=== PATIENT | female | born 1985 | race African-American/Black ===

== ENCOUNTER 2017-10-13 23:34 | Emergency (ER) | payer OTHER ==
[2017-10-13 23:50] VITALS: BP 116/90; PULSE 88; TEMP 98.5; BMI 31.6
[2017-10-14] MEDS ORDERED: KETOROLAC TROMETHAMINE 30 MG/1 ML VIAL IVPUSH ONE (01:13)
[2017-10-14] MEDS ORDERED: SODIUM CHLORIDE 1,000 ML IV STA (01:13)
[2017-10-14] MEDS ORDERED: ALBUTEROL SO4 0.083% IH SOL 2.5 MG/3 ML VIAL.NEB. NEB ONE ×2 (01:13→01:29)
[2017-10-14] MEDS ORDERED: KETOROLAC TROMETHAMINE 30 MG/1 ML VIAL ONE (01:29)
[2017-10-14 01:47] LABS: BASO % 0.8 % (0-2.0); EOS % 3.5 % (0-4.5); HEMATOCRIT 36.3 % (32.4-45.2); HEMOGLOBIN 11.7 GM/dL (10.7-15.3); LYMPH % 50.2 % (8-40); MCHC 32.3 g/dl (32.0-36.0); MEAN CELL VOLUME 83.7 fl (80-96); MEAN PLT VOLUME 7.6 fl (7.5-11.1); MONO % 17.4 % (3.8-10.2); NEUT % 28.1 % (42.8-82.8); PLATELET COUNT 293 K/MM3 (134-434); RBC 4.33 M/mm3 (3.60-5.2); WHITE BLOOD COUNT 2.9 K/mm3 (4.0-10.0)
[2017-10-14 01:50] LABS: URINE APPEARANCE CLEAR; URINE BILIRUBIN NEGATIVE (NEGATIVE); URINE BLOOD 1+ (NEGATIVE); URINE COLOR STRAW; URINE GLUCOSE (UA) NEGATIVE (NEGATIVE); URINE KETONE NEGATIVE (NEGATIVE); URINE LEUK ESTERASE NEGATIVE (NEGATIVE); URINE NITRITE NEGATIVE (NEGATIVE); URINE PROTEIN NEGATIVE (NEGATIVE)
[2017-10-14 01:53] LABS: HCG,QUALITATIVE URINE NEGATIVE
[2017-10-14 01:54] LABS: EPI CELLS RARE /HPF (FEW)
[2017-10-14 02:22] LABS: ALBUMIN 3.3 g/dl (3.4-5.0); ALK PHOS 59 U/L (45-117); ANION GAP 8 (8-16); BILIRUBIN,TOTAL 0.2 mg/dL (0.2-1.0); BLOOD UREA NITROGEN 7 mg/dL (7-18); CALCIUM 8.6 mg/dL (8.5-10.1); CHLORIDE 104 mmol/L (98-107); CO2 27 mmol/L (21-32); CREATININE 0.8 mg/dL (0.55-1.02); GLUCOSE,RANDOM 92 mg/dL (74-106); LIPASE 125 U/L (73-393); POTASSIUM 4.1 mmol/L (3.5-5.1); SGOT/AST 18 U/L (15-37); SGPT/ALT 23 U/L (12-78); SODIUM 139 mmol/L (136-145); TOT PROT 7.7 g/dl (6.4-8.2)
--- NOTE | 2017-10-14 02:34 | PDOC ---
History of Present Illness <Rommel London - Last Filed: 10/14/17 02:42> - General History Source: Patient Exam Limitations: No Limitations - History of Present Illness Initial Comments: 10/14/17 02:36 The patient is a 31 year old female, with a significant past medical history of seasonal asthma, who presents to the emergency department with, approx. 2 days of fever, dry cough, epigastric abdominal pain, lightheadedness and nausea without vomiting. The patient reports the epigastric abdominal pain is intermittent and last for a few minutes before going away on its own. The patient also reports one episode of diarrhea (non bloody non bilious) and decreased appetite with her last meal being chicken noodle soup prior to arrival. The patient reports her coworker recently came to work with the flu this past week. The patient reports taking Theraflu with minor relief. She denies recent, chills, or headache. She denies recent, vomit, or constipation. She denies recent dysuria, frequency, urgency or hematuria. She denies recent chest pain or shortness of breath. Allergies: Penicillins Past surgical history: Reports having ovarian cyst removed. Social history: Nonsmoker. Denies EtOH use and recreational drug use. Primary Care Physician: Dr Collin Lemus <Cooper Connor - Last Filed: 10/14/17 02:46> - General Chief Complaint: Pain, Acute Stated Complaint: COLD SYMPTOMS Time Seen by Provider: 10/14/17 00:59 Past History - Past Medical History COPD: No - Suicide/Smoking/Psychosocial Hx Smoking History: Never smoked Have you smoked in the past 12 months: No Information on smoking cessation initiated: No Hx Alcohol Use: No Drug/Substance Use Hx: No <Rommel London - Last Filed: 10/14/17 02:42> <Cooper Connor - Last Filed: 10/14/17 02:46> - Past Medical History Allergies/Adverse Reactions: Allergies Allergy/AdvReac Type Severity Reaction Status Date / Time Penicillins Allergy Verified 10/13/17 23:49 Home Medications: Ambulatory Orders Albuterol Sulfate Inhaler - [Ventolin HFA Inhaler -] 1 - 2 inh PO Q4H PRN #1 inhaler 10/14/17 Famotidine [Pepcid] 20 mg PO BID PRN #10 tablet 10/14/17 Ibuprofen 600 mg PO Q6H PRN #20 tablet 10/14/17 Mag Hydrox/Al Hydrox/Simeth [Mylanta Suspension -] 30 ml PO Q6H PRN #1 bottle Ondansetron HCl [Zofran] 4 mg PO Q8H PRN #12 tablet 10/14/17 Review of Systems - Review of Systems Comments:: 10/14/17 02:36 GENERAL/CONSTITUTIONAL: +Fever. No chills. No weakness. HEAD, EYES, EARS, NOSE AND THROAT: No change in vision. No ear pain or discharge. No sore throat. CARDIOVASCULAR: No chest pain or shortness of breath. RESPIRATORY: +Dry cough. No wheezing, or hemoptysis. GASTROINTESTINAL: +Epigastric abdominal pain. +Nausea. +Diarrhea. No vomiting or constipation. GENITOURINARY: No dysuria, frequency, or change in urination. MUSCULOSKELETAL: No joint or muscle swelling or pain. No neck or back pain. SKIN: No rash NEUROLOGIC: +Lightheadedness. No headache, vertigo, loss of consciousness, or change in strength/sensation. ENDOCRINE: No increased thirst. No abnormal weight change. HEMATOLOGIC/LYMPHATIC: No anemia, easy bleeding, or history of blood clots. ALLERGIC/IMMUNOLOGIC: No hives or skin allergy. <Cooper Connor - Last Filed: 10/14/17 02:46> *Physical Exam - Vital Signs Last Vital Signs Temp Pulse Resp BP Pulse Ox 98.5 F 88 20 116/90 99 10/13/17 23:49 10/13/17 23:49 10/13/17 23:49 10/13/17 23:49 10/13/17 23:49 <Rommel London - Last Filed: 10/14/17 02:42> - Vital Signs Last Vital Signs Temp Pulse Resp BP Pulse Ox 98.5 F 88 20 116/90 99 10/13/17 23:49 10/13/17 23:49 10/13/17 23:49 10/13/17 23:49 10/13/17 23:49 - Physical Exam Comments: 10/14/17 02:36 GENERAL: Awake, alert, and fully oriented, in no acute distress HEAD: No signs of trauma EYES: PERRLA, EOMI, sclera anicteric, conjunctiva clear ENT: Auricles normal inspection, hearing grossly normal, nares patent, oropharynx clear without exudates. Moist mucosa NECK: Normal ROM, supple, no lymphadenopathy, JVD, or masses LUNGS: Breath sounds equal, clear to auscultation bilaterally. No wheezes, and no crackles HEART: Regular rate and rhythm, normal S1 and S2, no murmurs, rubs or gallops ABDOMEN: +Tender to epigastric region. Negative murphys sign. Soft, normoactive bowel sounds. No guarding, no rebound. No masses EXTREMITIES: Normal range of motion, no edema. No clubbing or cyanosis. No cords, erythema, or tenderness NEUROLOGICAL: Cranial nerves II through XII grossly intact. Normal speech, normal gait SKIN: Warm, Dry, normal turgor, no rashes or lesions noted. <Cooper Connor - Last Filed: 10/14/17 02:46> ED Treatment Course - LABORATORY CBC & Chemistry Diagram: 10/14/17 01:36 10/14/17 01:36 - ADDITIONAL ORDERS Additional order review: Laboratory Results 10/14/17 10/14/17 01:36 01:36 Sodium 139 Potassium 4.1 Chloride 104 Carbon Dioxide 27 Anion Gap 8 BUN 7 Creatinine 0.8 Creat Clearance w eGFR > 60 Random Glucose 92 Calcium 8.6 Total Bilirubin 0.2 AST 18 ALT 23 Alkaline Phosphatase 59 Total Protein 7.7 Albumin 3.3 L Lipase 125 Urine Color Straw Urine Appearance Clear Urine pH 6.0 Ur Specific [place] 1.004 Urine Protein Negative Urine Glucose (UA) Negative Urine Ketones Negative Urine Blood 1+ H Urine Nitrite Negative Urine Bilirubin Negative Urine Urobilinogen 2.0 H Ur Leukocyte Esterase Negative Urine WBC (Auto) 1 Urine RBC (Auto) <1 Ur Epithelial Cells Rare Urine HCG, Qual Negative 10/14/17 01:36 Influenza Types A,B Antigen (PRINCESS) - Final Nasopharyngeal Swab - Final 10/14/17 01:36 RBC 4.33 MCV 83.7 MCHC 32.3 RDW 17.0 H MPV 7.6 Neutrophils % 28.1 L Lymphocytes % 50.2 H Monocytes % 17.4 H Eosinophils % 3.5 Basophils % 0.8 - Medications Given in the ED: ED Medications Discontinued Medications Generic Name Dose Route Start Last Admin Trade Name Freq PRN Reason Stop Dose Admin Albuterol Sulfate 1 amp 10/14/17 01:13 10/14/17 01:44 Ventolin 0.083% Nebulizer Soln - NEB 10/14/17 01:14 1 amp ONCE ONE Administration Sodium Chloride 1,000 mls @ 1,000 mls/hr 10/14/17 01:13 10/14/17 01:43 Normal Saline - IV 10/14/17 02:12 1,000 mls/hr ASDIR STA Administration Ketorolac Tromethamine 30 mg 10/14/17 01:13 10/14/17 01:43 Toradol Injection - IVPUSH 10/14/17 01:14 30 mg ONCE ONE Administration <Rommel London - Last Filed: 10/14/17 02:42> - LABORATORY CBC & Chemistry Diagram: 10/14/17 01:36 10/14/17 01:36 - ADDITIONAL ORDERS Additional order review: Laboratory Results 10/14/17 10/14/17 01:36 01:36 Sodium 139 Potassium 4.1 Chloride 104 Carbon Dioxide 27 Anion Gap 8 BUN 7 Creatinine 0.8 Creat Clearance w eGFR > 60 Random Glucose 92 Calcium 8.6 Total Bilirubin 0.2 AST 18 ALT 23 Alkaline Phosphatase 59 Total Protein 7.7 Albumin 3.3 L Lipase 125 Urine Color Straw Urine Appearance Clear Urine pH 6.0 Ur Specific [place] 1.004 Urine Protein Negative Urine Glucose (UA) Negative Urine Ketones Negative Urine Blood 1+ H Urine Nitrite Negative Urine Bilirubin Negative Urine Urobilinogen 2.0 H Ur Leukocyte Esterase Negative Urine WBC (Auto) 1 Urine RBC (Auto) <1 Ur Epithelial Cells Rare Urine HCG, Qual Negative 10/14/17 01:36 Influenza Types A,B Antigen (PRINCESS) - Final Nasopharyngeal Swab - Final 10/14/17 01:36 RBC 4.33 MCV 83.7 MCHC 32.3 RDW 17.0 H MPV 7.6 Neutrophils % 28.1 L Lymphocytes % 50.2 H Monocytes % 17.4 H Eosinophils % 3.5 Basophils % 0.8 - Medications Given in the ED: ED Medications Discontinued Medications Generic Name Dose Route Start Last Admin Trade Name Freq PRN Reason Stop Dose Admin Albuterol Sulfate 1 amp 10/14/17 01:13 10/14/17 01:44 Ventolin 0.083% Nebulizer Soln - NEB 10/14/17 01:14 1 amp ONCE ONE Administration Sodium Chloride 1,000 mls @ 1,000 mls/hr 10/14/17 01:13 10/14/17 01:43 Normal Saline - IV 10/14/17 02:12 1,000 mls/hr ASDIR STA Administration Ketorolac Tromethamine 30 mg 10/14/17 01:13 10/14/17 01:43 Toradol Injection - IVPUSH 10/14/17 01:14 30 mg ONCE ONE Administration <Cooper Connor - Last Filed: 10/14/17 02:46> Medical Decision Making - Medical Decision Making 10/14/17 02:42 A portion of this note was documented by scribe services under my direction. I have reviewed the details of the note, within reason, and agree with the documentation with the following case summary and management plan written by me. Patient treated in the ED. Nursing notes are reviewed and incorporated into the medical decision-making. Vital signs reviewed. Peripheral IV access obtained by the nurse, laboratory studies are drawn and sent, reviewed and interpreted by myself. Vital Signs Temp Pulse Resp BP Pulse Ox 98.5 F 88 20 116/90 99 10/13/17 23:49 10/13/17 23:49 10/13/17 23:49 10/13/17 23:49 10/13/17 23:49 31-year-old female with history of seasonal asthma presents with 2 days of dry cough, abdominal discomfort, nausea, loose stools. States that she's been having difficulty tolerate by mouth. Had positive sick contact. The blood work demonstrates a low white blood cell count and triple count. The patient reports that she has a known history of this and this is nothing new. The rest of blood work done shows no acute findings. After giving albuterol, Toradol and IV fluids, the patient reports significant relief of symptoms. She states she'll to go home. I suspect this is likely viral syndrome. We'll give referral to our doctors here at [facility]. I discussed the physical exam findings, ancillary test results and final diagnoses with the patient. I answered all of the patient's questions. The patient was satisfied with the care received and felt comfortable with the discharge plan and treatment plan. The patient will call their primary care physician within 24 hours to arrange follow-up and will return to the Emergency Department with any new, persistant or worsening symptoms. <Rommel London - Last Filed: 10/14/17 02:42> *DC/Admit/Observation/Transfer - Discharge Dispostion Admit: No <Rommel London - Last Filed: 10/14/17 02:42> - Attestations Scribe Attestion: 10/14/17 02:36 Documentation prepared by Cooper Connor, acting as medical record technician for Rommel London MD. <Cooper Connor - Last Filed: 10/14/17 02:46> Diagnosis at time of Disposition: Gastroenteritis - Discharge Dispostion Disposition: HOME - Prescriptions Prescriptions: Albuterol Sulfate Inhaler - [Ventolin HFA Inhaler -] 1 - 2 inh PO Q4H PRN #1 inhaler PRN Reason: Wheezing Famotidine [Pepcid] 20 mg PO BID PRN #10 tablet PRN Reason: Abdominal Pain Ibuprofen 600 mg PO Q6H PRN #20 tablet PRN Reason: Pain/Fever Mag Hydrox/Al Hydrox/Simeth [Mylanta Suspension -] 30 ml PO Q6H PRN #1 bottle PRN Reason: Abdominal Pain Ondansetron HCl [Zofran] 4 mg PO Q8H PRN #12 tablet PRN Reason: Nausea - Referrals Referrals: Brodie Busby MD [Staff Physician] - - Patient Instructions Printed Discharge Instructions: DI for Viral Gastroenteritis -- Adult, DI for Viral Syndrome Additional Instructions: Please drink plenty of fluids and rest. It may take several days before your symptoms improve. Please take the medications as prescribed. Follow up with a doctor. - Post Discharge Activity Forms/Work/School Notes: Back to Work
== END 2017-10-14 03:10 | disposition home or self-care (01) ==
LOC: JER 23:34
PROC: 3E0333Z Introduction of Anti-inflammatory into Peripheral Vein, Percutaneous Approach (ICD-10-PCS; principal; 2017-10-13)
PROC: 3E0F7GC Introduction of Other Therapeutic Substance into Respiratory Tract, Via Natural or Artificial Opening (ICD-10-PCS; 2017-10-13)
DX: K52.9 Noninfective gastroenteritis and colitis, unspecified (principal)
CPT/HCPCS: 36415; 80053; 81003; 81015; 83690; 84703; 85025; 87804; 99282-25

== ENCOUNTER 2018-01-23 17:30 | Emergency (ER) | payer OTHER ==
--- NOTE | 2018-01-23 17:33 | PDOC ---
Rapid Medical Evaluation Time Seen by Provider: 01/23/18 17:31 Medical Evaluation: Allergies Allergy/AdvReac Type Severity Reaction Status Date / Time Penicillins Allergy Verified 01/23/18 17:31 01/23/18 17:31 I have performed a brief in-person evaluation of this patient. The patient presents with a chief complaint of: sharp lower abdominal pain- 9wks Pertinent physical exam findings: deferred I have ordered the following: urine, labs, tylenol The patient will proceed to the ED for further evaluation. Discharge Disposition - Diagnosis Abdominal pain affecting - Referrals - Patient Instructions - Post Discharge Activity
[2018-01-23 17:35] VITALS: BP 127/68; PULSE 97; TEMP 98.3; BMI 30.9
[2018-01-23 17:59] LABS: BASO % 0.4 % (0-2.0); EOS % 1.6 % (0-4.5); HEMATOCRIT 32.5 % (32.4-45.2); HEMOGLOBIN 10.8 GM/dL (10.7-15.3); LYMPH % 30.9 % (8-40); MCHC 33.3 g/dl (32.0-36.0); MEAN CELL VOLUME 84.2 fl (80-96); MEAN PLT VOLUME 7.4 fl (7.5-11.1); MONO % 7.2 % (3.8-10.2); NEUT % 59.9 % (42.8-82.8); PLATELET COUNT 365 K/MM3 (134-434); RBC 3.86 M/mm3 (3.60-5.2); WHITE BLOOD COUNT 7.6 K/mm3 (4.0-10.0)
--- NOTE | 2018-01-23 17:59 | PDOC ---
History of Present Illness - General Chief Complaint: Pain Stated Complaint: PAIN (9 WKS ) Time Seen by Provider: 01/23/18 17:31 - History of Present Illness Initial Comments: 01/23/18 17:57 32 [id number], LMP 11/23 at 9w3d confirmed by transvaginal U/S, h/o asthma, who p/ w abdominal pain and dsyuria. Reports suprpapubic pain/pressure ( worse with sitting position) and dysuria x 3 days. No asx. complaints. No OTC symptom management. Denies F/C, N/V, cough, CP, SOB, abdominal pain, flank pain, foul smelling urine , diarrhea, constipation, postprandial pain, BPR, urinary frequency, vaginal burning/discharge/itching/bleeding, hematuria, weakness, lightheadedness, sensory changes PMHx: L Ovarian Cystectomy (07/22/2015). F/w red cap Dr. Morales. Allergies: Allergic to Penicillin ROS: As noted above SHx: denies tobacco, Etoh, IVDA Past History - Past Medical History Allergies/Adverse Reactions: Allergies Allergy/AdvReac Type Severity Reaction Status Date / Time Penicillins Allergy Verified 01/23/18 17:31 Home Medications: Ambulatory Orders Famotidine [Pepcid] 20 mg PO BID PRN #10 tablet 10/14/17 Mag Hydrox/Al Hydrox/Simeth [Mylanta Suspension -] 30 ml PO Q6H PRN #1 bottle Ondansetron HCl [Zofran] 4 mg PO Q8H PRN #12 tablet 10/14/17 RX: Albuterol Sulfate Inhaler - [Ventolin HFA Inhaler -] 1 - 2 inh PO Q4H PRN # 1 inhaler 10/14/17 RX: Ibuprofen 600 mg PO Q6H PRN #20 tablet 10/14/17 CVA: No COPD: No - Surgical History Abdominal Surgery: Yes (lt ovary cyst) - Suicide/Smoking/Psychosocial Hx Smoking History: Never smoked Have you smoked in the past 12 months: No Information on smoking cessation initiated: No Hx Alcohol Use: No Drug/Substance Use Hx: No Substance Use Type: None Review of Systems - Review of Systems Comments:: 01/23/18 17:57 GENERAL/CONSTITUTIONAL: No fever or chills. No weakness. HEAD, EYES, EARS, NOSE AND THROAT: No change in vision. No ear pain or discharge. No sore throat. CARDIOVASCULAR: No chest pain or shortness of breath RESPIRATORY: No cough, wheezing, or hemoptysis. GASTROINTESTINAL: No nausea, vomiting, diarrhea or constipation. GENITOURINARY:+ dysuria. No frequency, or change in urination. MUSCULOSKELETAL: No joint or muscle swelling or pain. No neck or back pain. SKIN: No rash NEUROLOGIC: No headache, vertigo, loss of consciousness, or change in strength/ sensation. ENDOCRINE: No increased thirst. No abnormal weight change HEMATOLOGIC/LYMPHATIC: No anemia, easy bleeding, or history of blood clots. ALLERGIC/IMMUNOLOGIC: No hives or skin allergy. *Physical Exam - Vital Signs Last Vital Signs Temp Pulse Resp BP Pulse Ox 98.3 F 97 H 18 127/68 100 01/23/18 17:32 01/23/18 17:32 01/23/18 17:32 01/23/18 17:32 01/23/18 17:32 - Physical Exam Comments: 01/23/18 17:57 GENERAL: Awake, alert, and fully oriented, in no acute distress HEAD: No signs of trauma, normocephalic, atraumatic EYES: PERRLA, EOMI, sclera anicteric, conjunctiva clear ENT: Hearing grossly normal, nares patent, oropharynx clear without exudates. Moist mucosa NECK: Normal ROM, supple, no lymphadenopathy, JVD, or masses LUNGS: No distress, speaks full sentences, clear to auscultation bilaterally HEART: Regular rate and rhythm, normal S1 and S2, no murmurs, rubs or gallops, peripheral pulses normal and equal bilaterally. ABDOMEN: suprpapubic discomfort/ttp, normoactive bowel sounds. No guarding, no rebound. No masses EXTREMITIES : Normal inspection, Normal range of motion, no edema. No clubbing or cyanosis. SKIN: Warm, Dry, normal turgor, no rashes or lesions noted ED Treatment Course - LABORATORY CBC & Chemistry Diagram: 01/23/18 17:45 01/23/18 17:45 Medical Decision Making - Medical Decision Making 01/23/18 18:29 32 [id number], LMP 11/23 at 9w3d confirmed by transvaginal U/S, h/o asthma, who p/ w suprapubic abdominal pain and dsyuria x 3 days. No asx. complaints, VSS, A&Ox3 , suprpapubic ttp on PE. Sx.most likely 2/2 cystitis. Transabdominal to assess for viable IUP, vs. ectopic , placenta previa, MINOO, threatened . However, unlikely in absence of vaginal bleeding. No evidence or clinical s/s of pyelonephritis. ED Course: CBC, CMP, BHCG, UA, Urine Cx. 01/23/18 20:11 UA: Neg 01/23/18 20:33 CBC, CMP: Unremarkable BHC Transab U/S: FHR 173, Viable IUP 10w2d. 01/23/18 20:35 Pt. safe for d/c with return precautions. Advised to f/u with Maintenance Clerk. *DC/Admit/Observation/Transfer Diagnosis at time of Disposition: Abdominal pain affecting Qualifiers: Weeks of gestation: 10 weeks Qualified Code(s): Z3A.10 - 10 weeks gestation of - Discharge Dispostion Disposition: HOME Condition at time of disposition: Stable - Referrals - Patient Instructions Printed Discharge Instructions: DI for -- Discomforts and Remedies, DI for Abdominal Pain -- Early Additional Instructions: Please return to the emergency department with any new or worsening symptoms or concerns. Please follow up with your fiber optics engineer physician within 72 hours. - Post Discharge Activity - Attestations Physician Attestion: 01/23/18 17:58 I attest to the information provided in this note.
[2018-01-23 18:22] LABS: CHLORIDE 105 mmol/L (98-107); POTASSIUM 4.1 mmol/L (3.5-5.1); SODIUM 137 mmol/L (136-145)
[2018-01-23 18:55] LABS: ALBUMIN 3.2 g/dl (3.4-5.0); ALK PHOS 60 U/L (45-117); ANION GAP 9 (8-16); BILIRUBIN,TOTAL 0.4 mg/dL (0.2-1.0); BLOOD UREA NITROGEN 8 mg/dL (7-18); CALCIUM 8.8 mg/dL (8.5-10.1); CO2 23 mmol/L (21-32); CREATININE 0.6 mg/dL (0.55-1.02); GLUCOSE,RANDOM 98 mg/dL (74-106); SGOT/AST 12 U/L (15-37); SGPT/ALT 17 U/L (12-78); TOT PROT 7.3 g/dl (6.4-8.2)
[2018-01-23 19:12] LABS: URINE APPEARANCE CLEAR; URINE BILIRUBIN NEGATIVE (<2.0 mg/dL); URINE COLOR STRAW; URINE GLUCOSE (UA) NEGATIVE (NEGATIVE); URINE KETONE NEGATIVE (NEGATIVE); URINE LEUK ESTERASE NEGATIVE (NEGATIVE); URINE NITRITE NEGATIVE (NEGATIVE); URINE PROTEIN NEGATIVE (NEGATIVE); URINE UROBILINOGEN NEGATIVE mg/dL (0.2-1.0)
--- NOTE | 2018-01-23 19:46 | PDOC ---
Attending Attestation - HPI HPI: 01/23/18 20:11 The patient is a 32 year old female, , 9 wk 3 days, with past medical history of left ovarian cystectomy and asthma presents to the emergency department with a lower abdominal pain for the past 3 days. The patient reports a sharp shooting pain radiating from her lower abdomen to the pubix region when urinating. Denies taking any medication for the pain. Denies hematuria, frequency or urgency to urinate. Denies vaginal bleeding or discharge. Denies weakness, lightheadedness or loss of sensations. 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 No apparent distress. HEENT: Normocephalic, atraumatic. PERRL, EOM intact. CARDIOVASCULAR: Normal S1, S2. Regular rate and rhythm. PULMONARY: Clear to auscultation bilaterally. ABDOMEN: Shooting pain, no pelvic exam done. Soft, non-distended, non-tender. EXTREMITIES: Normal ROM in all four extremities. No gross deformities. SKIN: Warm, dry. No rash NEUROLOGICAL: No focal neurological deficits. <Dayna Nino - Last Filed: 01/23/18 20:11> - Resident Resident Name: Ari Aly - ED Attending Attestation I have performed the following: I have examined & evaluated the patient, The case was reviewed & discussed with the resident, I agree w/resident's findings & plan, Exceptions are as noted - HPI HPI: 01/23/18 19:44 32 YO FEMALE P/W SHOOTING PELVIC PAIN FOLLOWED BY WOMEN TO WOMEN - Physicial Exam PE: 01/23/18 19:46 WNWD 32 YO FEMALE WITH PELVIC CRAMPING,NO BLEEDING - Medical Decision Making 01/23/18 20:56 [id number] US sl iup ,good heart tones -f/u with you anna/corporate human resources manager <Luz Marina Alvarado - Last Filed: 01/23/18 20:56>
--- NOTE | 2018-01-23 20:55 | PDOC ---
*Physical Exam - Vital Signs Last Vital Signs Temp Pulse Resp BP Pulse Ox 98.3 F 97 H 18 127/68 100 01/23/18 17:32 01/23/18 17:32 01/23/18 17:32 01/23/18 17:32 01/23/18 17:32 ED Treatment Course - LABORATORY CBC & Chemistry Diagram: 01/23/18 17:45 01/23/18 17:45 - ADDITIONAL ORDERS Additional order review: Laboratory Results 01/23/18 01/23/18 01/23/18 18:45 17:45 17:45 Sodium 137 Potassium 4.1 Chloride 105 Carbon Dioxide 23 Anion Gap 9 BUN 8 Creatinine 0.6 Creat Clearance w eGFR > 60 Random Glucose 98 Calcium 8.8 Total Bilirubin 0.4 D AST 12 L ALT 17 Alkaline Phosphatase 60 Total Protein 7.3 Albumin 3.2 L Beta HCG, Quant 78056.0 Urine Color Straw Urine Appearance Clear Urine pH 6.0 Ur Specific [place] 1.004 Urine Protein Negative Urine Glucose (UA) Negative Urine Ketones Negative Urine Blood Negative Urine Nitrite Negative Urine Bilirubin Negative Urine Urobilinogen Negative Ur Leukocyte Esterase Negative Blood Type O POSITIVE Antibody Screen Negative 01/23/18 17:45 RBC 3.86 MCV 84.2 MCHC 33.3 RDW 16.0 H MPV 7.4 L Neutrophils % 59.9 D Lymphocytes % 30.9 D Monocytes % 7.2 Eosinophils % 1.6 Basophils % 0.4 - RADIOLOGY Radiology Studies Ordered: Category Date Time Status <14WKS US [US] Stat Ultrasound 01/23/18 19:18 Completed *DC/Admit/Observation/Transfer Diagnosis at time of Disposition: Abdominal pain affecting Qualifiers: Weeks of gestation: 10 weeks Qualified Code(s): Z3A.10 - 10 weeks gestation of - Discharge Dispostion Disposition: HOME Condition at time of disposition: Stable - Referrals - Patient Instructions Printed Discharge Instructions: DI for Abdominal Pain -- Early , DI for -- Discomforts and Remedies Additional Instructions: Please return to the emergency department with any new or worsening symptoms or concerns. Please follow up with your french instructor physician within 72 hours. - Post Discharge Activity
== END 2018-01-23 20:58 | disposition home or self-care (01) ==
LOC: JER 17:30
DX: O26.891 Other specified pregnancy related conditions, first trimester (principal); R10.2 Pelvic and perineal pain; Z3A.10 10 weeks gestation of pregnancy
CPT/HCPCS: 36415; 76801-TC; 80053; 81003; 84702; 85025; 86850; 86900; 86901; 87086; 99281-25

== ENCOUNTER 2018-04-02 14:58 | Emergency (ER) | payer OTHER ==
[2018-04-02 15:04] VITALS: BP 135/52; PULSE 118; TEMP 98.5; BMI 33.1
--- NOTE | 2018-04-02 15:28 | PDOC ---
History of Present Illness - General Chief Complaint: Cold Symptoms Stated Complaint: 19WK /FEVER/ THROAT PAIN Time Seen by Provider: 04/02/18 15:13 History Source: Patient Exam Limitations: Clinical Condition - History of Present Illness Initial Comments: 04/02/18 15:21 Patient 19 weeks with no significant past medical history presenting with complaint of sore throat, nasal congestion and tactile fever since yesterday with headache. Patient reports fever of 100.5F this morning which she took Tylenol. Denies nausea or vomiting, diarrhea or abdominal pain. Patient denies any other symptoms Timing/Duration: other (2 days) Past History - Past Medical History Allergies/Adverse Reactions: Allergies Allergy/AdvReac Type Severity Reaction Status Date / Time Penicillins Allergy Verified 04/02/18 15:04 Home Medications: Ambulatory Orders Ipratropium [place] 2 sprays NS BID PRN #1 spray 04/02/18 Prenat 115/Iron Fum/Folic/Dss [ 19 Tablet] 1 each PO DAILY 04/02/18 CVA: No COPD: No - Surgical History Abdominal Surgery: Yes (lt ovary cyst) - Suicide/Smoking/Psychosocial Hx Smoking History: Never smoked Have you smoked in the past 12 months: No Information on smoking cessation initiated: No Hx Alcohol Use: No Drug/Substance Use Hx: No Substance Use Type: None Review of Systems - Review of Systems Able to Perform ROS?: Yes Is the patient limited Cymro proficient: No Constitutional: Yes: Fever. No: Chills, Diaphoresis, Loss of Appetite, Malaise , Night Sweats, Weakness, Weight Stable, Unintentional Wgt. Loss, Unexplained wgt Loss, Other HEENTM: Yes: Nose Congestion, Throat Pain, Difficulty Swallowing. No: Eye Pain , Blurred Vision, Tearing, Recent change in vision, Double Vision, Cataracts, Ear Pain, Ocular Prothesis, Ear Discharge, Nose Pain, Tinnitus, Nose Bleeding, Hearing Loss, Throat Swelling, Mouth Pain, Dental Problems, Mouth Swelling, Other Respiratory: No: Cough, Orthopnea, Shortness of Breath, SOB with Exertion, SOB at Rest, Stridor, Wheezing, Productive cough, Hemoptysis, Other Cardiac (ROS): No: Chest Pain, Edema, Irregular Heart Rate, Lightheadedness, Palpitations, Syncope, Chest Tightness, Other ABD/GI: No: Abdominal Distended, Abd. Pain w/ defecation, Blood Streaked Bowels , Constipated, Diarrhea, Difficulty Swallowing, Nausea, Poor Appetite, Poor Fluid Intake, Rectal Bleeding, Vomiting, Indigestion, Abdominal cramping, Tarry Stools, Other Musculoskeletal: No: Back Pain, Gout, Joint Pain, Joint Swelling, Muscle Pain, Muscle Weakness, Neck Pain, Joint Stiffness, Other All Other Systems: Reviewed and Negative *Physical Exam - Vital Signs Last Vital Signs Temp Pulse Resp BP Pulse Ox 98.5 F 118 H 16 135/52 100 04/02/18 15:02 04/02/18 15:02 04/02/18 15:02 04/02/18 15:02 04/02/18 15:02 - Physical Exam Comments: 04/02/18 15:24 GENERAL: Well developed, well nourished. Awake and alert. No acute distress. HEENT: Mild throat erythema with no exudates. Throat patent. Moderate congestion in bilateral nostrils. No sinus tenderness Normocephalic, atraumatic. PERRLA, EOMI. No conjunctival pallor. Sclera are non-icteric. Moist mucous membranes. . NECK: Supple. Full ROM. No JVD. Carotid pulses 2+ and symmetric, without bruits. No thyromegaly. No lymphadenopathy. CARDIOVASCULAR: Regular rate and rhythm. No murmurs, rubs, or gallops. Distal pulses are 2+ and symmetric. PULMONARY: No evidence of respiratory distress. Lungs clear to auscultation bilaterally. No wheezing, rales or rhonchi. ABDOMINAL: Soft. Non-tender. Non-distended. No rebound or guarding. No organomegaly. Normoactive bowel sounds. MUSCULOSKELETAL Normal range of motion at all joints. No bony deformities or tenderness. No CVA tenderness. EXTREMITIES: No cyanosis. No clubbing. No edema. No calf tenderness. SKIN: Warm and dry. Normal capillary refill. No rashes. No jaundice. NEUROLOGICAL: Alert, awake, appropriate. Cranial nerves 2-12 intact. No deficits to light touch and temperature in face, upper extremities and lower extremities. No motor deficits in the in face, upper extremities and lower extremities. Normoreflexic in the upper and lower extremities. Normal speech. Toes are down- going bilaterally. Gait is normal without ataxia. PSYCHIATRIC: Cooperative. Good eye contact. Appropriate mood and affect. General Appearance: Yes: Nourished, Appropriately Dressed. No: Apparent Distress Medical Decision Making - Medical Decision Making 04/02/18 15:25 19 weeks patient presented with complain of sore throat, nasal congestion and headache with fever for 2 days. Negative exudate on the pharynx and no enlarged tonsils. Symptoms likely sinusitis with viral pharyngitis. Rapid strep ordered to rule out pharyngitis and throat culture sent. Treat based on rapid strep results 04/02/18 15:48 Rapid strep negative. patient will be treated for sinusitis with PCP follow-up *DC/Admit/Observation/Transfer Diagnosis at time of Disposition: Sinusitis Qualifiers: Sinusitis location: unspecified location Chronicity: acute Recurrence: non- recurrent Qualified Code(s): J01.90 - Acute sinusitis, unspecified - Discharge Dispostion Disposition: HOME Condition at time of disposition: Good Decision to Admit order: No - Prescriptions Prescriptions: Ipratropium [place] 2 sprays NS BID PRN #1 spray PRN Reason: nasal congestion - Referrals Referrals: Chelsi Chavis MD [Primary Care Provider] - - Patient Instructions Printed Discharge Instructions: DI for Common Cold, Sinusitis (Alternative Therapy), DI for Sinusitis - Post Discharge Activity
== END 2018-04-02 15:53 | disposition home or self-care (01) ==
LOC: JERFT 14:58
DX: O99.89 Other specified diseases and conditions complicating pregnancy, childbirth and the puerperium (principal); J01.90 Acute sinusitis, unspecified; J02.9 Acute pharyngitis, unspecified; Z3A.19 19 weeks gestation of pregnancy
CPT/HCPCS: 87070; 87430; 99281-25

== ENCOUNTER 2018-08-19 08:21 | Inpatient (IN) | payer OTHER ==
[2018-08-19] MEDS ORDERED: TUBERCULIN PPD 5 TU/0.1ML SYRINGE (IN PATIENT USE ONLY) ID ONE ×2 (08:47→20:15)
[2018-08-19] MEDS ORDERED: PROMETHAZINE HCL 25 MG/1 ML VIAL IVPUSH ONE (09:07)
[2018-08-19] MEDS ORDERED: BUTORPHANOL TARTRATE 1 MG/ML VIAL IVPB ONE (09:07)
[2018-08-19 09:12] VITALS: BMI 35.5
[2018-08-19] MEDS ORDERED: OXYTOCIN 30 UNITS in 0.9% NS 30 UNIT/500 ML INFUS.BAG IVPB SCH (09:15)
[2018-08-19] MEDS ORDERED: ELECTROLYTE-148 SOLN 1,000 ML IV SCH (09:15)
--- NOTE | 2018-08-19 09:22 | HP ---
Past Medical History - Admission Chief Complaint: Here for labor induction. History of Present Illness: 32 y/o P1 female here for labor induction due to gestational HTN. No complaints today. Denies RUBIO/RUQ pain/changes in vision. +FM, no VB/LOF. Occasional contractions. History Source: Patient, Medical Record Limitations to Obtaining History: No Limitations - Past Medical History Cardiovascular: Yes: HTN (gestational only) Pulmonary: No: COPD Gastrointestinal: No: GERD Hepatobiliary: No: Hepatitis B, Hepatitis C ...: 3 ...Para: 1 ...Term: 1 ...: 0 ...Spon : 0 ...Induced : 1 ...Multiple Gestation: 0 ...LMP: 11/20/17 ... Weeks Gestation by Dates: 38.6 ...EDC by Dates: 08/27/18 ...EDC by Sono: 08/27/18 Infectious Disease: No: Herpes Zoster, HIV, MRSA, STD's Psych: No: Anxiety, Bipolar, Depression Endocrine: No: Diabetes Mellitus - Past Surgical History Past Surgical History: Yes: None Hx Myomectomy: No Hx Transabdominal Cerclage: No - Smoking History Smoking history: Never smoked Have you smoked in the past 12 months: No - Alcohol/Substance Use Hx Alcohol Use: No - Social History Usual Living Arrangement: Yes: With Spouse ADL: Independent History of Recent Travel: No Home Medications - Allergies Allergies/Adverse Reactions: Allergies Allergy/AdvReac Type Severity Reaction Status Date / Time Penicillins Allergy Severe Swelling Verified 08/19/18 10:03 - Home Medications Home Medications: Ambulatory Orders Vitamins (Sjr) - 1 tab PO DAILY 08/13/18 Ranitidine HCl [Zantac] 150 mg PO PRN PRN 08/14/18 Review of Systems - Review of Systems Constitutional: reports: No Symptoms Eyes: reports: No Symptoms HENT: reports: No Symptoms Neck: reports: No Symptoms Cardiovascular: reports: No Symptoms Respiratory: reports: No Symptoms Gastrointestinal: reports: No Symptoms Genitourinary: reports: No Symptoms Breasts: reports: No Symptoms Reported Musculoskeletal: reports: No Symptoms Integumentary: reports: No Symptoms Neurological: reports: No Symptoms Endocrine: reports: No Symptoms Hematology/Lymphatic: reports: No Symptoms Psychiatric: reports: No Symptoms Physical Exam - Maternity Vital Signs: Vital Signs Temperature 98.0 F 08/19/18 08:21 Pulse Rate 83 08/19/18 08:21 Respiratory Rate 18 08/19/18 08:21 Blood Pressure 130/79 08/19/18 08:21 O2 Sat by Pulse Oximetry (%) Constitutional: Yes: Well Nourished, No Distress, Calm Eyes: Yes: WNL HENT: Yes: Atraumatic Cardiovascular: Yes: Regular Rate and Rhythm Lungs: Clear to auscultation - Abdominal Exam/OB Number of Fetuses: Single Presentation: Vertex Regularity: Irregular Category: I - Vaginal Exam/OB Speculum Exam: No Dilatation (cm): 3 Effacement (%): 50 Amniotic Membrane Status: Intact Station: -3 Hemorrhage Risk Assessment - Risk Factors Medium Risk Factors: Yes: None High Risk Factors: Yes: None Risk Score: 1 Risk Level: Medium Risk Problem List - Problems (1) Gestational hypertension Code(s): O13.9 - GESTATIONAL HTN W/O SIGNIFICANT PROTEINURIA, UNSP TRIMESTER Assessment/Plan GHTN for IOL FHTS cat 1 3cm dilated for pitocin
[2018-08-19 09:25] LABS: EOS % 0.5 % (0-4.5); HEMATOCRIT 32.2 % (32.4-45.2); HEMOGLOBIN 10.2 GM/dL (10.7-15.3); LYMPH % 21.7 % (8-40); MCH 28.4 pg (25.7-33.7); MCHC 31.8 g/dl (32.0-36.0); MEAN CELL VOLUME 89.2 fl (80-96); MEAN PLT VOLUME 8.1 fl (7.5-11.1); MONO % 7.2 % (3.8-10.2); NEUT % 69.6 % (42.8-82.8); PLATELET COUNT 216 K/MM3 (134-434); RBC 3.61 M/mm3 (3.60-5.2); RDW 16.4 % (11.6-15.6); WHITE BLOOD COUNT 6.3 K/mm3 (4.0-10.0)
[2018-08-19] MEDS ORDERED: OXYTOCIN 30 UNITS in 0.9% NS 30 UNIT/500 ML INFUS.BAG IVPB ONE (09:34)
[2018-08-19 09:38] LABS: INR 0.97 (0.83-1.09); PROTHROMBIN TIME (PATIENT) 11.4 SEC (9.7-13.0)
[2018-08-19 09:41] LABS: ACTIVATED PTT 29.2 SECONDS (25.2-36.5)
[2018-08-19 10:05] LABS: ANION GAP 11 MMOL/L (8-16); BLOOD UREA NITROGEN 5 mg/dL (7-18); CALCIUM 8.2 mg/dL (8.5-10.1); CHLORIDE 108 mmol/L (98-107); CO2 21 mmol/L (21-32); CREATININE 0.6 mg/dL (0.55-1.3); GLUCOSE,RANDOM 95 mg/dL (74-106); POTASSIUM 3.9 mmol/L (3.5-5.1); SODIUM 140 mmol/L (136-145)
[2018-08-19] MEDS ORDERED: BUTORPHANOL TARTRATE 1 MG/ML VIAL ONE ×2 (14:58)
[2018-08-19] MEDS ORDERED: PROMETHAZINE HCL 25 MG/1 ML VIAL ONE (14:59)
--- NOTE | 2018-08-19 17:58 | PN ---
Ante-Partal Exam - Subjective Vital Signs: Vital Signs Temperature 98.1 F 08/19/18 16:00 Pulse Rate 75 08/19/18 17:00 Respiratory Rate 18 08/19/18 17:00 Blood Pressure 130/81 08/19/18 17:00 O2 Sat by Pulse Oximetry (%) Bleeding: No Headache: No Visual changes: No Right upper quadrant pain: No - Contractions Contractions: Yes Regularity: Regular Intensity: Mod/Strong - Exam during Labor Heart Rate: 145 Variability: Minimal (pt s/p stadol) Category: I Monitor Accelerations: Present Monitor Decelerations: None Exam: Vaginal Dilatation (cm): 3.5 Effacement (%): 50 Amniotic Membrane Status: Ruptured (AROM for clear) Nitrazine Test: Positive Amniotic Fluid: Clear Presentation: Vertex Station: -2 - Assessment/Plan Assessment/Plan: IOL for gestational HTN s/p stadol/phenergan s/p AROM for clear fluid continue active management epidural prn
[2018-08-19] MEDS ORDERED: FENTANYL/BUPIVACAINE/NS/PF - PCEA - 50 ML DISP.SYRIN EP ONE ×2 (18:56→22:41)
[2018-08-19] MEDS ORDERED: BUPIVACAINE HCL/PF 0.25% (2.5MG/ML) 10 ML VIAL ONE (19:07)
[2018-08-19] MEDS ORDERED: NALOXONE HCL 0.4 MG/ML VIAL IVPUSH PRN (19:52)
[2018-08-19] MEDS ORDERED: FENTANYL/BUPIVACAINE/NS/PF - PCEA - 50 ML DISP.SYRIN EP SCH ×2 (20:00)
--- NOTE | 2018-08-19 20:40 | PN ---
Ante-Partal Exam - Subjective Subjective: Pt comfortable s/p epidural. Vital Signs: Vital Signs Temperature 98.2 F 08/19/18 20:00 Pulse Rate 86 08/19/18 20:00 Respiratory Rate 18 08/19/18 20:00 Blood Pressure 105/64 08/19/18 20:00 O2 Sat by Pulse Oximetry (%) 95 08/19/18 20:00 Bleeding: Yes Bleeding Description: Mild Headache: No Visual changes: No Right upper quadrant pain: No - Contractions Contractions: Yes Regularity: Regular Intensity: Mod/Strong - Exam during Labor Heart Rate: 145 Variability: Moderate Category: I Monitor Accelerations: Present Monitor Decelerations: None Exam: Vaginal Dilatation (cm): 5 Effacement (%): 90 Amniotic Membrane Status: Ruptured Amniotic Fluid: Clear Presentation: Vertex Station: -2 - Assessment/Plan Assessment/Plan: Continue with active management of labor re evaluate once patient feels pressure/urge to push
--- NOTE | 2018-08-19 22:52 | PN ---
Ante-Partal Exam - Subjective Subjective: Came to evaluate patient for recurrent variable decelerations. Pt feeling comfortable. Vital Signs: Vital Signs Temperature 98.7 F 08/19/18 21:00 Pulse Rate 90 08/19/18 22:00 Respiratory Rate 18 08/19/18 22:00 Blood Pressure 126/64 08/19/18 22:00 O2 Sat by Pulse Oximetry (%) 99 08/19/18 22:00 Bleeding: Yes Bleeding Description: Mild Headache: No Visual changes: No Right upper quadrant pain: No - Contractions Contractions: Yes Regularity: Regular Intensity: Strong Monitor Mode: External - Exam during Labor Heart Rate: 150 Variability: Minimal Category: II Monitor Accelerations: Present (with scalp stimulation) Monitor Decelerations: Variable Exam: Vaginal Dilatation (cm): 8 Effacement (%): 100 Amniotic Membrane Status: Ruptured Presentation: Vertex Station: -1 - Assessment/Plan Assessment/Plan: 32 y/o with SIUP at 38.6 weeks, GHTN , IOL s/p AROM on pitocin category 2 tracing but continues to to make cervical change, good variability with scalp stim, will continue to monitor continue current care, anticipate
[2018-08-20] MEDS ORDERED: FENTANYL/BUPIVACAINE/NS/PF - PCEA - 50 ML DISP.SYRIN EP ONE (02:52)
[2018-08-20] MEDS ORDERED: LIDOCAINE HCL 1% PRESERVATIVE FREE - 30ML VIAL ONE (03:06)
[2018-08-20] MEDS ORDERED: BENZOCAINE 28 GM HEMORRHOIDAL OINTMENT TP PRN (03:07)
[2018-08-20] MEDS ORDERED: BISACODYL 10 MG SUPP.RECT RC PRN (03:07)
[2018-08-20] MEDS ORDERED: METHYLERGONOVINE MALEATE 0.2 MG/1 ML AMP IM PRN (03:07)
[2018-08-20] MEDS ORDERED: WITCH HAZEL 50% (TUCKS) 40 PAD/JAR PAD TP PRN (03:07)
[2018-08-20] MEDS ORDERED: BENZOCAINE 20% 57 GM BOTTLE TP PRN (03:07)
--- NOTE | 2018-08-20 03:07 | PN ---
Ante-Partal Exam - Subjective Subjective: Pt comfortable. Vital Signs: Vital Signs Temperature 98.8 F 08/20/18 02:00 Pulse Rate 78 08/20/18 02:00 Respiratory Rate 18 08/20/18 02:00 Blood Pressure 113/65 08/20/18 02:00 O2 Sat by Pulse Oximetry (%) 100 08/20/18 02:00 Bleeding: Yes Bleeding Description: Mild Headache: No Visual changes: No Right upper quadrant pain: No - Contractions Contractions: Yes Regularity: Regular Intensity: Strong - Exam during Labor Heart Rate: 160 Variability: Minimal Category: II Monitor Accelerations: Absent Monitor Decelerations: Variable Exam: Vaginal Dilatation (cm): 9.5 Effacement (%): 100 Presentation: Vertex Station: 0 - Assessment/Plan Assessment/Plan: Pt able to push through anterior lip to begin pushing
[2018-08-20] MEDS ORDERED: OXYTOCIN 10 UNITS/ML VIAL ONE (03:26)
[2018-08-20] MEDS ORDERED: OXYTOCIN 10 UNIT/ML 10ML MDV IM ONE (03:30)
--- NOTE | 2018-08-20 03:36 | PN ---
Delivery - Delivery Vaginal Delivery: No Problems Type of Anesthesia: Epidural Episiotomy/Laceration: None EBL (cc): 300 Delivery, Single - Stages of Labor Date of Delivery: 08/20/18 Time of Delivery: : Date Placenta Delivered: 08/20/18 Time Placenta Delivered: Placenta: Yes: Spontaneous - Condition of Limousine Rental Clerk/Senior Staff Accountant Present: No Gender: Female Position: Left, OA - 1 Minute Total Score: 9 5 Minutes Total Score: 9 - [place] Feeding Plan Initial Plan: Exclusive throughout hospitalization Remarks - Remarks Remarks: Uncomplicated of baby girl from WILFREDO position across in tact perineum anterior shoulder (right) delivered with ease along with remainder of 3vc noted, clamped and cut bulb suction and tactile stimulation used for resuscitation Apgars 9/9 placenta delivered in tact, spontaneously sponge count correct after delivery 20 units IM pitocin administered (IV no longer functioning) after delivery mom stable baby to well baby nursery
[2018-08-20] MEDS ORDERED: OXYTOCIN 20 UNITS in 0.9% NS 20 UNIT/1,000 ML INFUS.BAG IV ONE (04:34)
[2018-08-20] MEDS: OXYTOCIN 20 UNITS in 0.9% NS 20 UNIT/1,000 ML INFUS.BAG IV SCH ×2 (04:45→10:15)
[2018-08-20] MEDS: FERROUS SO4 325 MG TABLET (FP) PO SCH ×2 (08:01→17:22)
[2018-08-20] MEDS: IBUPROFEN 600 MG TABLET (FP) PO PRN ×2 (08:02→17:21)
[2018-08-20] MEDS: ACETAMINOPHEN 325 MG TABLET (FP) PO PRN ×2 (08:03→17:22)
[2018-08-21 07:40] LABS: BASO % 0.4 % (0-2.0); EOS % 1.2 % (0-4.5); HEMATOCRIT 25.2 % (32.4-45.2); HEMOGLOBIN 8.6 GM/dL (10.7-15.3); LYMPH % 21.2 % (8-40); MCH 30.1 pg (25.7-33.7); MCHC 34.1 g/dl (32.0-36.0); MEAN CELL VOLUME 88.3 fl (80-96); MEAN PLT VOLUME 8.5 fl (7.5-11.1); MONO % 6.6 % (3.8-10.2); NEUT % 70.6 % (42.8-82.8); PLATELET COUNT 203 K/MM3 (134-434); RBC 2.86 M/mm3 (3.60-5.2); RDW 16.2 % (11.6-15.6); WHITE BLOOD COUNT 12.6 K/mm3 (4.0-10.0)
[2018-08-21] MEDS: IBUPROFEN 600 MG TABLET (FP) PO PRN ×3 (07:57→21:11)
[2018-08-21] MEDS: ACETAMINOPHEN 325 MG TABLET (FP) PO PRN ×3 (07:58→21:12)
[2018-08-21] MEDS: FERROUS SO4 325 MG TABLET (FP) PO SCH ×2 (07:59→17:17)
[2018-08-21] MEDS: OXYTOCIN 20 UNITS in 0.9% NS 20 UNIT/1,000 ML INFUS.BAG IV SCH (12:05)
--- NOTE | 2018-08-21 13:10 | PN ---
Post Note - Post Date of Delivery: 08/20/18 Post Day: 1 Vital Signs: Vital Signs - 24 hr 08/20/18 08/20/18 08/21/18 17:30 22:00 02:00 Temperature 98.5 F 98 F 97.8 F Pulse Rate 90 97 H 88 Respiratory 20 18 18 Rate Blood Pressure 108/64 128/80 118/72 08/21/18 08:45 Temperature 97.9 F Pulse Rate 81 Respiratory 18 Rate Blood Pressure 126/90 Labs: Laboratory Results - last 24 hr 08/21/18 06:45 WBC 12.6 H RBC 2.86 L Hgb 8.6 L Hct 25.2 L D MCV 88.3 MCH 30.1 MCHC 34.1 RDW 16.2 H Plt Count 203 MPV 8.5 Absolute Neuts (auto) 8.9 H Neutrophils % 70.6 Lymphocytes % 21.2 Monocytes % 6.6 Eosinophils % 1.2 D Basophils % 0.4 Nucleated RBC % 0 - Subjective Subjective: No Complaints, Ambulating, Tolerating Diet, No Nausea or vomiting - Objective Afebrile: Yes Breast: Not engorged Abdomen: Soft, Non-tender Uterus: Fundus firm, Non-tender Vagina: Scant lochia Extremities: Non-tender - Assessment/Plan (2) essential hypertension during , delivered Assessment: S/P Normal Plan: Routine Care, Other (DC home in am RTO 2 weeks)
[2018-08-21] MEDS ORDERED: SENNOSIDES/DOCUSATE COMBO (SENNA PLUS) TABLET (UD) PO PRN (22:00)
[2018-08-22] MEDS: FERROUS SO4 325 MG TABLET (FP) PO SCH (08:03)
[2018-08-22] MEDS: IBUPROFEN 600 MG TABLET (FP) PO PRN (08:05)
[2018-08-22] MEDS: ACETAMINOPHEN 325 MG TABLET (FP) PO PRN (08:06)
[2018-08-22 08:34] VITALS: BP 118/85; PULSE 75; TEMP 98.4
--- NOTE | 2018-09-09 18:03 | DS ---
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 Vital Signs: Vital Signs Temperature 98.4 F 08/22/18 08:30 Pulse Rate 75 08/22/18 08:30 Respiratory Rate 18 08/22/18 08:30 Blood Pressure 118/85 08/22/18 08:30 O2 Sat by Pulse Oximetry (%) 100 08/20/18 03:00 Constitutional: Yes: Well Nourished, No Distress Respiratory: Yes: WNL Gastrointestinal: Yes: WNL ....Post : Yes: Uterus firm, Uterus non-tender Breast(s): Yes: WNL Musculoskeletal: Yes: WNL Extremities: Yes: WNL Edema: No Labs: CBC, BMP 08/21/18 06:45 08/19/18 09:00 Delivery - Delivery Vaginal Delivery: No Problems Type of Anesthesia: Epidural Episiotomy/Laceration: None EBL (cc): 300 Delivery, Single - Stages of Labor Date 1st Stage Initiatied: 08/19/18 Time 1st Stage Initiated: 14:00 Date 2nd Stage Initiated: 08/20/18 Time 2nd Stage Initiated: 03:00 Date of Delivery: 08/20/18 Time of Delivery: 03:20 Time Placenta Delivered: 03:24 Placenta: Yes: Spontaneous - Condition of Infant Vp Legal Affairs/Agent Telegrapher Present: No Gender: Female Weight: 8 lb 15 oz Position: Left, OA Total Hours ROM (Hrs/Mins): 9HOURS/34MIN - 1 Minute Total Score: 9 5 Minutes Total Score: 9 - [place] Feeding Plan Initial Plan: Exclusive throughout hospitalization Discharge Summary Reason For Visit: CERVICAL INDUCTION Procedures: Principal: Normal vaginal delivery Condition: Good - Instructions Diet, Activity, Other Instructions: Physical activity Resume your normal everyday activity as tolerated no heavy lifting or exercise until seen by your surgeon. You may walk unlimited dany of and climb stairs. You may resume driving the car when you feel safe and comfortable behind the wheel. No sexual activity as instructed. Wound care If you have a bandage, leave it on, and keep dry for 48-72 hours. After that time discard the outer bandage. If they are tapes on the skin under the out of bandage leave them in place. They will peel off in the next 7 to 10 days. Do Not Peel them off. You may shower the day after surgery. If there are tapes present on the skin, you may shower over them. Diet There are no dietary restrictions. Eat healthy, high-fiber foods. Drink 6 to 8 glasses of liquid each day. This will assist in keeping your bowels are regular. Pain management You may take Tylenol or acetaminophen or Ibuprofen (for example, Motrin, Advil etc.) from my pain prescription medication is ordered should be taken as prescribed for moderate to severe pain. Call MD for any of the following: Severe pain not relieved by medication Fever of 101 or higher Excessive bleeding or drainage on dressing Inability to urinate Referrals: Johana Magdaleno DO [Staff Physician] - Disposition: HOME - Home Medications Comprehensive Discharge Medication List: Ambulatory Orders Vitamins (Sjr) - 1 tab PO DAILY 08/13/18 Ranitidine HCl [Zantac] 150 mg PO PRN PRN 08/14/18 Ibuprofen [Motrin -] 600 mg PO TID #21 tablet 08/21/18
== END 2018-08-22 12:15 | disposition home or self-care (01) | DRG 560 ==
LOC: JLDR 08:21 → J3W 08-20 05:30
PROVIDERS: ADMIT Obstetrics & Gynecology; ATTEND Obstetrics & Gynecology
PROC: 10E0XZZ Delivery of Products of Conception, External Approach (ICD-10-PCS; principal; 2018-08-20)
DX: O13.3 Gestational [pregnancy-induced] hypertension without significant proteinuria, third trimester (principal); Z3A.38 38 weeks gestation of pregnancy; Z37.0 Single live birth
CPT/HCPCS: 36415; 59409; 80048; 85025; 85610; 85730; 86593; 86850; 86900; 86901

== ENCOUNTER 2019-07-13 08:40 | Emergency (ER) | payer OTHER ==
[2019-07-13 08:48] VITALS: BP 123/87; PULSE 80; TEMP 98.4
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
== END 2019-07-13 09:36 | disposition home or self-care (01) ==
LOC: JERFT 08:40
DX: Z04.1 Encounter for examination and observation following transport accident (principal); V43.52XA Car driver injured in collision with other type car in traffic accident, initial encounter; Y93.89 Activity, other specified; Y92.410 Unspecified street and highway as the place of occurrence of the external cause; O24.419 Gestational diabetes mellitus in pregnancy, unspecified control; N83.209 Unspecified ovarian cyst, unspecified side; Z88.8 Allergy status to other drugs, medicaments and biological substances
CPT/HCPCS: 99281-25